=== PATIENT | male | born 1990 | race Asian ===

== ENCOUNTER 2022-03-19 15:13 | Emergency (ER) | payer BC ==
[~2022-03-19] VITALS: Ht 177.8 cm; Wt 79.8 kg
[2022-03-19] MEDS ORDERED: KETOROLAC TROMETHAMINE 30 MG/ML VIAL IM STA (16:04)
[2022-03-19] MEDS ORDERED: KETOROLAC TROMETHAMINE 30 MG/ML VIAL ONE (16:48)
== END 2022-03-19 17:13 | disposition home or self-care (01) ==
LOC: FSED 15:19
DX: R51.9 Headache, unspecified (principal)
CPT/HCPCS: 99282; J1885